=== PATIENT | female | born 1980 | race Caucasian/White ===

== ENCOUNTER 2022-06-29 22:48 | Emergency (ER) | payer OTHER ==
[2022-06-29] MEDS ORDERED: HYDROMORPHONE HCL 0.5 MG/0.5 ML INJ ONE (23:53)
[2022-06-29] MEDS ORDERED: ONDANSETRON 4 MG/2 ML VIAL ONE (23:53)
[2022-06-30 00:13] LABS: Urine Blood Negative (Negative); Urine Glucose Negative (Negative); Urine Protein 1+ (Negative); Urine Specific Gravity >=1.030 (1.005-1.030); Urine pH 5.5 (5.0-7.0)
[2022-06-30 00:29] LABS: Absolute Lymphocytes (CBC) 1.5 K/uL (0.7-4.9); Hematocrit 36.9 % (36.0-45.0); Lymphocytes % 15.9 % (15.3-44.8); MPV 8.1 fL (7.6-11.3); RBC Red Blood Cell Count 4.01 M/uL (3.86-4.86)
[2022-06-30 00:33] LABS: Calcium Oxalate Crystals- Ur Many /HPF (None Seen); Urine Bacteria None Seen /HPF (<20); Urine Mucus Slight /HPF (None Seen); Urine RBC None Seen /HPF (None Seen)
[2022-06-30 00:45] LABS: Albumin 4.1 g/dL (3.4-5.0); Bilirubin Total 0.2 mg/dL (0.2-1.0); Potassium 3.9 mmol/L (3.5-5.1); Protein, Total 7.6 g/dL (6.4-8.2)
[2022-06-30 02:47] LABS: Urine Specific Gravity/Preg >1.030 (1.005-1.030)
[2022-06-30 03:46] VITALS: TEMP 98.1
[2022-06-30 03:49] VITALS: O2SAT 97
[2022-06-30 03:50] VITALS: BP 101/63
--- NOTE | 2022-06-30 11:28 | RAD REPORT ---
EXAM DESCRIPTION: CT Abdomen and Pelvis With Intravenous Contrast CLINICAL HISTORY: ABD PAIN TECHNIQUE: Axial computed tomography images of the abdomen and pelvis with intravenous contrast. S agittal and coronal reformatted images were created and reviewed. This CT exam was performed using one or more of the following dose reduction techniques: automated exposure control, adjustment of t he mA and/or kV according to patient size, and/or use of iterative reconstruction technique. COMPARISON: No relevant prior studies available. FINDINGS: Lung bases: Unremarkable. No mass. No consolidation. ABDOMEN: Liver: Unremarkable. No mass. Gallbladder and bile ducts: Unremarkable. No calcified stones. No ductal dilation. Pancreas: Unremarkable. No mass. No ductal dilation. Spleen: Unremarkable. No splenomegaly. Adrenals: Unremarkable. No mass. Kidneys and ureters: Unremarkable. No solid mass. No hydronephrosis. Stomach and bowel: Prior gastric bypass. Copious stool. No bowel obstruction. No appreciable mucosal thickening. PELVIS: Appendix: Normal caliber appendix. No findings to suggest acute appendicitis. Bladder: Unremarkable. No mass. Reproductive: 2.1 cm left ovarian corpus luteal cyst. No follow-up imaging is necessary. The ut erus and right ovary are unremarkable as visualized. ABDOMEN and PELVIS: Intraperitoneal space: Unremarkable. No free air. No significant fluid collection. Bones/joints: Mild to moderate multilevel spondylosis. No acute fracture. No dislocation. Soft tissues: Unremarkable. Vasculature: Unremarkable. No abdominal aortic aneurysm. Lymph nodes: Unremarkable. No enlarged lymph nodes. IMPRESSION: 1. Copious stool. No bowel obstruction. 2. Other findings as above. 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 The interpreting radiologist is fully responsible for the content of the report.
--- NOTE | 2022-07-16 14:13 | EDPHYS ---
Physician Documentation [facility] Name: Federica Mixon Age: 42 yrs Sex: Female : 1980 Arrival Date: 06/29/2022 Time: 22:50 Bed 18 Private MD: ED Physician Kaveh Dieog HPI: 06/29 23:29 This 42 yrs old Female presents to ER via EMS with complaints of Abdominal Pain. 3 23:29 42-year-old female with history of obesity and gastric bypass in 2020 now presents to [facility] the ED with lower abdominal pain bilaterally since approximately 6 PM today. Denies any fever, headache, neck pain, chest pain, shortness of breath, back pain, vomiting, diarrhea, rash, bleeding, PRODUCTION QUALITY MANAGER symptoms, urinary symptoms, or any other symptoms at this time. Pain is described as waxing and waning in nature. She also denies any injury, travel, or known sick contacts.. 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 - Social history:: Smoking status: Patient denies any tobacco usage or history of. ROS: 23:30 Constitutional: Negative for fever, chills, and weight loss, Eyes: Negative for injury, sp3 pain, redness, and discharge, ENT: Negative for injury, pain, and discharge, Neck: Negative for injury, pain, and swelling, Cardiovascular: Negative for chest pain, palpitations, and edema, Respiratory: Negative for shortness of breath, cough, wheezing, and pleuritic chest pain, Back: Negative for injury and pain, : Negative for injury, bleeding, discharge, and swelling, MS/Extremity: Negative for injury and deformity, Skin: Negative for injury, rash, and discoloration, Neuro: Negative for headache, weakness, numbness, tingling, and seizure, Psych: Negative for depression, anxiety, suicide ideation, homicidal ideation, and hallucinations, Allergy/Immunology: Negative for hives, rash, and allergies, Endocrine: Negative for neck swelling, polydipsia, polyuria, polyphagia, and marked weight changes. 23:30 All other systems are negative. Exam: 23:30 Constitutional: This is a well developed, well nourished patient who is awake, alert, sp3 and in no acute distress. Head/Face: Normocephalic, atraumatic. Eyes: Pupils equal round and reactive to light, extra-ocular motions intact. Lids and lashes normal. Conjunctiva and sclera are non-icteric and not injected. Cornea within normal limits. Periorbital areas with no swelling, redness, or edema. ENT: Nares patent. No nasal discharge, no septal abnormalities noted. External auditory canals are clear. Oropharynx with no redness, swelling, or masses, exudates, or evidence of obstruction, uvula midline. Mucous membranes moist. Neck: Trachea midline, no thyromegaly or masses palpated, and no cervical lymphadenopathy. Supple, full range of motion without nuchal rigidity, or vertebral point tenderness. No Meningismus. Chest/axilla: Normal chest wall appearance and motion. Nontender with no deformity. No lesions are appreciated. Cardiovascular: Regular rate and rhythm with a normal S1 and S2. No gallops, murmurs, or rubs. Normal PMI, no JVD. No pulse deficits. Respiratory: Lungs have equal breath sounds bilaterally, clear to auscultation and percussion. No rales, rhonchi or wheezes noted. No increased work of breathing, no retractions or nasal flaring. Back: No spinal tenderness. No costovertebral tenderness. Full range of motion. Skin: Warm, dry with normal turgor. Normal color with no rashes, no lesions, and no evidence of cellulitis. MS/ Extremity: Pulses equal, no cyanosis. Neurovascular intact. Full, normal range of motion. Neuro: Awake and alert, GCS 15, oriented to person, place, time, and situation. Cranial nerves II-XII grossly intact. Motor strength 5/5 in all extremities. Sensory grossly intact. Cerebellar exam normal. Normal gait. Psych: Awake, alert, with orientation to person, place and time. Behavior, mood, and affect are within normal limits. 23:30 Abdomen/GI: Mild lower abdominal pain to palpation without peritoneal signs, rebound or guarding.. Vital Signs: 22:55 BP 136 / 78; Pulse 68; Resp 18; Temp 98.1(O); Pulse Ox 100% on R/A; Weight 70.31 kg ll3 (R); Height 5 ft. 1 in. (R); Pain 10/10; 23:00 BP 116 / 84; Pulse 61; Resp 17 S; Pulse Ox 98% ; ha1 23:55 BP 114 / 73; Pulse 65; Resp 15 S; Pulse Ox 97% on R/A; ha1 03 00:55 BP 101 / 63; Pulse 80; Resp 15 S; Pulse Ox 97% on R/A; ha1 06/29 22:55 Body Mass Index 29.29 (70.31 kg, 154.94 cm) ll3 03 22:55 Pain Scale: Adult ll3 MDM: 06/29 23:06 Patient medically screened. sp3 23:30 Data reviewed: vital signs, nurses notes, lab test result(s), radiologic studies. ED sp3 course: 42-year-old female with lower abdominal pain. Given history of gastric bypass, differential diagnosis will include bowel obstruction, bowel pathology including anastomotic leak/issue, bowel obstruction, ileus, functional abdominal pain, adhesions, among others. Clinically I am not highly suspicious for PRODUCTION QUALITY MANAGER, urinary, vascular pathology for patient's symptoms. Will obtain laboratory values, CT scan, and gently observe patient for any clinical signs that may change patient course. We will discharge patient home if work-up is negative and she feels better.. 06/30 01:35 ED course: . ED course: Labs normal and CT scan demonstrates constipation without sp3 obstruction or other abnormality. We will discharge patient home at this time.. 06/29 22:52 Order name: CBC with Diff; Complete Time: 01:14 sp3 06/29 22:52 Order name: CMP; Complete Time: 01:14 sp3 06/29 22:52 Order name: Lipase; Complete Time: 01:14 sp3 06/29 22:52 Order name: Urine Microscopic Only; Complete Time: 01:14 sp3 06/30 00:14 Order name: Urine Dipstick-Ancillary; Complete Time: 01:14 EDMS 06/30 00:40 Order name: Urine --Ancillary (enter results) rv1 06/29 22:52 Order name: CT Abd/Pelvis - IV Contrast Only sp3 06/29 22:52 Order name: IV Saline Lock; Complete Time: 00:13 sp3 06/29 22:52 Order name: Labs collected and sent; Complete Time: 00:13 sp3 06/29 22:52 Order name: Urine Dipstick-Ancillary (obtain specimen); Complete Time: 00:13 sp3 06/29 22:52 Order name: Urine Test (obtain specimen); Complete Time: 00:13 sp3 Administered Medications: 06/29 23:58 Drug: Ondansetron IVP 4 mg Route: IVP; Site: right antecubital; ha1 06/30 00:21 Follow up: Response: No adverse reaction ha1 00:01 Drug: HYDROmorphone IVP 1 mg Route: IVP; Site: right antecubital; ha1 00:21 Follow up: Response: No adverse reaction; Pain is decreased; RASS: Alert and Calm (0) ha1 Disposition Summary: 06/30/22 01:36 Discharge Ordered Location: Home sp3 Condition: Stable sp3 Diagnosis - Constipation, unspecified sp3 - Abdominal pain, Generalized sp3 Followup: sp3 - With: Private Physician - When: Upon discharge from the Emergency Department - Reason: Continuance of care Discharge Instructions: - Discharge Summary Sheet sp3 - Constipation, Adult sp3 Forms: - Medication Reconciliation Form sp3 - Thank You Letter sp3 - Antibiotic Education sp3 - Prescription Opioid Use sp3 Signatures: Dispatcher [employer] Kaveh Monsivais MD MD sp3 Hermila Hurtado RN RN 3 Estrellita Pinedo RN RN 1
--- NOTE | 2022-07-16 14:13 | ER ---
Nurse's Notes [facility] Name: Federica Mixon Age: 42 yrs Sex: Female : 1980 Arrival Date: 06/29/2022 Time: 22:50 Bed 18 Private MD: Diagnosis: Constipation, unspecified;Abdominal pain, Generalized Presentation: 06/29 22:55 Chief complaint: Patient states: C/o right and left lower abdominal pain, and nausea, ll3 states last BM was yesterday. Coronavirus screen: Vaccine status: Patient reports being unvaccinated. muscle pain, nausea. Ebola Screen: No symptoms or risks identified at this time. Initial Sepsis Screen: Does the patient meet any 2 criteria? No. Patient's initial sepsis screen is negative. Does the patient have a suspected source of infection? No. Patient's initial sepsis screen is negative. Risk Assessment: Do you want to hurt yourself or someone else? Patient reports no desire to harm self or others. Onset of symptoms was June 29, 2022 at 22:00. 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 - Social history:: Smoking status: Patient denies any tobacco usage or history of. Screenin:00 Abuse screen: Denies threats or abuse. Denies injuries from another. Nutritional ha1 screening: No deficits noted. Tuberculosis screening: No symptoms or risk factors identified. 23:00 [facility] ED Fall Risk Assessment (Adult) History of falling in the last 3 months, ha1 including since admission No falls in past 3 months (0 pts) Confusion or Disorientation No (0 pts) Intoxicated or Sedated No (0 pts) Impaired Gait No (0 pts) Mobility Assist Device Used No (0 pt) Altered Elimination No (0 pt) Score/Fall Risk Level 0 - 2 = Low Risk Oriented to surroundings, Maintained a safe environment, Educated pt \T\ family on fall prevention, incl call for assistance when getting out of bed, Assessed \T\ reinforced patient's understanding of fall precautions. Assessment: 23:00 General: Appears uncomfortable, Behavior is calm, cooperative. Pain: Complains of pain ha1 in abdomen Pain does not radiate. Pain at worst was 10 out of 10 on a pain scale. Quality of pain is described as crampy, throbbing, Pain began suddenly. Neuro: Level of Consciousness is awake, alert, obeys commands, Oriented to person, place, time, situation. Cardiovascular: Capillary refill < 3 seconds Patient's skin is warm and dry. Respiratory: Airway is patent Respiratory effort is even, unlabored, Respiratory pattern is regular, symmetrical. GI: Abdomen is round non-distended, Bowel sounds present X 4 quads. Abd is soft and non tender X 4 quads. Reports lower abdominal pain, gaseousness, nausea. : No signs and/or symptoms were reported regarding the genitourinary system. EENT: No signs and/or symptoms were reported regarding the EENT system. Derm: Skin is pink, warm \T\ dry. Musculoskeletal: Circulation, motion, and sensation intact. Range of motion: intact in all extremities. 06/30 00:20 Reassessment: Patient and/or family updated on plan of care and expected duration. Pain ha1 level reassessed. Patient is alert, oriented x 3, equal unlabored respirations, skin warm/dry/pink. Patient denies pain at this time. Patient states feeling better. Patient states symptoms have improved. 01:20 Reassessment: Patient and/or family updated on plan of care and expected duration. Pain ha1 level reassessed. Patient is alert, oriented x 3, equal unlabored respirations, skin warm/dry/pink. Patient denies pain at this time. Patient states feeling better. Patient states symptoms have improved. Vital Signs: 06/29 22:55 BP 136 / 78; Pulse 68; Resp 18; Temp 98.1(O); Pulse Ox 100% on R/A; Weight 70.31 kg ll3 (R); Height 5 ft. 1 in. (R); Pain 10/10; 23:00 BP 116 / 84; Pulse 61; Resp 17 S; Pulse Ox 98% ; ha1 23:55 BP 114 / 73; Pulse 65; Resp 15 S; Pulse Ox 97% on R/A; ha1 06/30 00:55 BP 101 / 63; Pulse 80; Resp 15 S; Pulse Ox 97% on R/A; ha1 06/29 22:55 Body Mass Index 29.29 (70.31 kg, 154.94 cm) ll3 06/29 22:55 Pain Scale: Adult 3 ED Course: 06/29 22:50 Patient arrived in ED. ja2 22:51 Kaveh Diego MD is Attending Physician. sp3 22:58 Triage completed. ll3 22:58 Arm band placed on Patient placed in waiting room, Patient notified of wait time. ll3 23:00 Patient has correct armband on for positive identification. Bed in low position. Call ha1 light in reach. Side rails up X 1. Adult w/ patient. 23:39 Estrellita Pinedo, MADELEINE is Primary Nurse. ha1 23:55 Inserted saline lock: 14 gauge 20 gauge in right antecubital area, using aseptic ha1 technique. Blood collected. 06/30 00:13 CBC with Diff Sent. ha1 00:13 CMP Sent. ha1 00:14 Lipase Sent. ha1 00:14 Urine Microscopic Only Sent. ha1 00:54 Urine --Ancillary (enter results) Sent. rv1 01:15 CT Abd/Pelvis - IV Contrast Only In Process Unspecified. EDMS 01:57 No provider procedures requiring assistance completed. IV discontinued, intact, ha1 bleeding controlled, No redness/swelling at site. Pressure dressing applied. Administered Medications: 06/29 23:58 Drug: Ondansetron IVP 4 mg Route: IVP; Site: right antecubital; ha1 06/30 00:21 Follow up: Response: No adverse reaction ha1 00:01 Drug: HYDROmorphone IVP 1 mg Route: IVP; Site: right antecubital; ha1 00:21 Follow up: Response: No adverse reaction; Pain is decreased; RASS: Alert and Calm (0) ha1 Medication: 01:58 VIS not applicable for this client. ha1 Outcome: 01:36 Discharge ordered by . sp3 01:58 Discharged to home ambulatory, with family. ha1 01:58 Condition: stable 01:58 Discharge instructions given to patient, family, Instructed on discharge instructions, follow up and referral plans. Demonstrated understanding of instructions, follow-up care. 01:59 Patient left the ED. ha1 Signatures: Dispatcher [employer] Kaveh Monsivais MD MD sp3 Bindu Maldonado Lynsea RN RN 3 Estrellita Pinedo RN RN ha1 Melvi Lacy rv1 Corrections: (The following items were deleted from the chart) 00:14 00:14 Ondansetron IVP 4 mg IVP in right antecubital ha1 ha1
== END 2022-06-30 01:59 | disposition home or self-care (01) ==
LOC: ER 22:48
DX: K59.00 Constipation, unspecified (principal)
CPT/HCPCS: 85025; 36415; 81025; 83690; 80053; 74177; 96375; 96374; 99284; Q9967; J1170; J2405; 81003; 81015

== ENCOUNTER 2023-11-25 22:05 | Emergency (ER) | payer OTHER ==
--- OUTSIDE RECORDS SUMMARY | 2023-11-25 22:08 | XMS REPORT | Continuity of Care Document ---
Author Name Unknown Address [address] [facility] [address] [place] [address] [facility] thconnect Address [address] [facility]. [address] [place] [address] Care Team Providers Care Mattress [place] Encaser Name Role Phone Behzad Curry Primary Care Physician [phone] FELY MCDUFFIE Attending Clinician Unavailable KENNY CASTILLO Attending Clinician Unavailab le LAB90 Attending Clinician Unavailable GC_GCBZW_Kadiyala_S Attending Clinician Unavaila KAREN Bledsoe Attending Clinician Unavailable MOISÉS GRANT Attending Clinician Unavaila ble GC_GCBZW_Kadiyala_S Admitting Clinician Unavaila ble Payers Payer Name Policy Type Policy Number Effective Date Expirati on Date Source CIGNA-ALLEGIANCE/P PO 2 [id number] 2022 00:00:00 [employer] - ALLEGIANCE BENEFIT PLAN MANAGEMENT (PPO) [id number] Problems Condition Name Condition Details Condition Category Status Onset Date Resolution Date Last Treatment Date Treating Clinician Comments Source Anemia Anemia Problem Active 08-17 00:00: 00 [facility] Depressive disorder Depressive Disorder Problem Active 07-31 00:00: 00 [facility] Insomnia Insomnia Problem Active 07-31 00:00: 00 [facility] Dyspareuni a Dyspareuni a Problem Active 07-31 00:00: 00 [facility] Menopausal syndrome Menopausal Syndrome Problem Active 4-08 00:00: 00 [facility] Joint pain Joint Pain Problem Active 4-08 00:00: 00 [facility] Fatigue Fatigue Problem Active 408 00:00: 00 [facility] Reduced libido Reduced Libido Problem Active 4-08 00:00: 00 [facility] Vitamin D deficiency Vitamin D Deficiency Problem Active 408 00:00: 00 [facility] Anxiety disorder Anxiety Disorder Problem Active 408 00:00: 00 [facility] Genital herpes simplex Genital Herpes Simplex Problem Active 24 00:00: 00 [facility] Abdominal cramping Abdominal cramping Disease Active 12-30 00:00: 00 Cara Welch - Externa l Panic attacks Panic attacks Disease Active 12-30 00:00: 00 Cara Championa l Vitamin D deficiency Vitamin D deficiency Disease Active 09-15 00:00: 00 Cara Championa l History of gastric bypass History of gastric bypass Disease Active 09-15 00:00: 00 Cara Welch - Externa l Fibrocysti c disease of breast Fibrocysti c Disease of Breast Problem Active 07-28 00:00: 00 [facility] Social History Social Habit Start Date Stop Date Quantity Comments Source History of tobacco use 1994-06-08 00:00:00 Passive smoker Cara Welch - External Gender identity Neda Welch - External Sexual orientation Kevan Welch - External Tobacco use and exposure 2023-09-16 00:00:00 2023-09-16 00:00:00 Smokeless tobacco non-user Cara Welch - External Cigarettes smoked current (pack per day) - Reported 2023-09-16 00:00:00 2023-09-16 00:00:00 Cara Welch - External Cigarette pack-years 2023-09-16 00:00:00 2023-09-16 00:00:00 Cara Welch - External Alcoholic beverage intake 2023-09-16 00:00:00 2023-09-16 00:00:00 Ex-drinker (finding) Cara Welch - External History of Social function 2023-01-10 00:00:00 2023-01-10 00:00:00 Cara Welch - External Alcohol intake 2022-12-30 00:00:00 2022-12-30 00:00:00 Ex-drinker (finding) Cara Welch - External Tobacco Comment 2022-09-14 00:00:00 2022-09-14 00:00:00 Stopped 2010 Cara Welch - External Sex assigned at 1980 00:00:00 1980 00:00:00 Cara Welch - External Smoking Status Start Date Stop Date Source Never Smoker [facility] Ex-smoker 2023-09-16 00:00:00 2023-09-16 00:00:00 Kevan sanches Rebekah - External Medications Ordered Medication Name Filled Medication Name Start Date Stop Date Current Medication? Ordering Clinician Indication Dosage Frequency Signature (SIG) Comments Components Source Ferrous Sulfate 325 (65 Fe) MG oral Tablet 09-15 08:41: 26 Yes [id number] 325mg Take 1 tablet (325 mg total) by mouth daily (with breakfast) . Cara morales Cholecalcif sonia (Vitamin D) 125 MCG (5000 UT) oral Capsule 09-15 08:41: 08 Yes 1{capsu le} Take 1 capsule by mouth daily. Cara morales Gabapentin 100 MG oral Capsule 09-15 00:00: 00 Yes [id number] 9101 100mg QD Take 1 capsule (100 mg total) by mouth nightly as needed. Cara morales Tirzepatide -Weight Management 2.5 MG/0.5ML subcutaneou s Solution Auto-inject or 09-15 00:00: 00 Yes [id number] 2.5mg Inject 0.5 mL (2.5 mg total) into the skin once a week. Cara morales Valacyclovi r HCl 500 MG oral Tablet 09-14 00:00: 00 Yes Cara morales [employer] Thyroid 60 MG oral Tablet 08-21 00:00: 00 Yes [id number] Take 1 tablet every day by oral route in the morning for 90 days. Cara Rebekah morales Escitalopra m Oxalate 20 MG oral Tablet 05-17 00:00: 00 Yes [id number] 20mg Take 1 tablet (20 mg total) by mouth daily. Cara morales Propranolol HCl 20 MG oral Tablet 2022-04 00:00: 00 Yes [id number] 20mg Q.5D Take 1 tablet (20 mg total) by mouth 2 times daily as needed. Cara morales Hyoscyamine Sulfate SL 0.125 MG sublingual SL Tab 2022-04 00:00: 00 Yes [id number] .125{tb l} Place 0.125 tablets under the tongue every 6 (six) hours. Cara morales Cyclobenzap rine HCl 5 MG oral Tablet 2022-04 00:00: 00 Yes [id number] 5mg Q.5D Take 1 tablet (5 mg total) by mouth 2 times daily as needed for muscle spasms. Cara morales Pantoprazol e Sodium 40 MG oral Tablet Delayed Response 2022-04 00:00: 00 Yes [id number] 40mg Take 1 tablet (40 mg total) by mouth daily. Cara morales Escitalopra m Oxalate 5 MG oral Tablet 12-30 14:55: 54 Yes 5mg Take 1 tablet (5 mg total) by mouth daily. Cara morales Escitalopra m Oxalate 10 MG oral Tablet 12-30 14:55: 45 12-30 00:00 :00 No 10mg Take 1 tablet (10 mg total) by mouth daily. Cara morales Hyoscyamine Sulfate SL 0.125 MG sublingual SL Tab 12-30 00:00: 00 Yes [id number] .125{tb l} Place 0.125 tablets under the tongue every 6 (six) hours. Cara morales Cyclobenzap rine HCl 5 MG oral Tablet 12-30 00:00: 00 Yes [id number] 5mg Q.[id number] 3D Take 1 tablet (5 mg total) by mouth 3 times daily as needed for muscle spasms. Cara morales Cyclobenzap rine HCl 5 MG oral Tablet 11-12 00:00: 00 12-30 00:00 :00 No [id number] 5mg Q.[id number] 3D Take 1 tablet (5 mg total) by mouth 3 times daily as needed for muscle spasms Cara morales Pantoprazol e Sodium 40 MG oral Tablet Delayed Response 10-29 00:00: 00 Yes [id number] 40mg Take 1 tablet (40 mg total) by mouth daily Cara morales Vitamin D, Ergocalcife rol, 1.25 MG (77507 UT) oral Capsule 09-22 00:00: 00 12-30 00:00 :00 No [id number] 69215X Take 1 capsule (50,000 units total) by mouth once a week Cara morales PANTOPRAZOL E SODIUM OR 09-15 09:59: 00 09-15 00:00 :00 No 40mg Take 40 mg by mouth daily Cara morales Pantoprazol e Sodium 40 MG oral Tablet Delayed Response 09-15 00:00: 00 Yes [id number] 40mg Take 1 tablet (40 mg total) by mouth daily Cara morales Cyclobenzap rine HCl 5 MG oral Tablet 09-15 00:00: 00 Yes [id number] 5mg Q.[id number] 3D Take 1 tablet (5 mg total) by mouth 3 times daily as needed for muscle spasms Cara morales Naproxen Sodium 550 MG oral Tablet 08-12 00:00: 00 Yes Cara morales Cyclobenzap rine HCl 5 MG oral Tablet 08-12 00:00: 00 09-15 00:00 :00 No Cara morales TAKE 6 ML BY MOUTH 2 TIMES A DAY ORALLY 5 DAYS 2021-04- 00:00: 00 No 1 TABLET UNDER THE TONGUE AND ALLOW TO DISSOLVE NEEDED EVERY 4 HOURS NEEDED SUBLINGUAL 2 DAYS 09-28 00:00: [address] 1 PATCH ONTO THE SKIN EVERY 12 HOURS. REMOVE &amp 09-28 00:00: 00 No 1 TABLET AT BEDTIME NEEDED ORALLY 4 DAY(S) 09-28 00:00: 00 No Gabapentin 250 MG/5ML oral Solution 09-28 00:00: 00 12-30 00:00 :00 No 250mg 5 mL (250 mg total). Cara morales Hyoscyamine Sulfate SL 0.125 MG sublingual SL Tab 09-28 00:00: 00 12-30 00:00 :00 No .125{tb l} Place 0.125 tablets under the tongue. Cara morales Lidocaine (Lidoderm) 5 % apply externally Patch 09-28 00:00: 00 12-30 00:00 :00 No 5{patch } 5 patches. Cara morales boric acid boric acid No boric acid [facility] cyclobenzap rine cyclobenzap rine No cyclobenza aubrie [facility] Mucinex Mucinex No Mucinex P [facility] pantoprazol e pantoprazol e No pantoprazo le [facility] iron iron No iron [facility] multivitami n multivitami n No multivitam in [facility] Vital Signs Vital Name Observation Time Observation Value Comments S ource Respiratory rate 2023-09-16 13:22:00 15 /min Cara Welch - External Body height 2023-09-16 13:22:00 154.9 cm Neda Welch - External Body weight 2023-09-16 13:22:00 74.39 kg Neda Welch - External BMI 2023-09-16 13:22:00 30.99 kg/m2 Neda Welch - External Systolic blood pressure 2023-09-16 13:22:00 100 mm[Hg] Cara butts - External Diastolic blood pressure 2023-09-16 13:22:00 60 mm[Hg] Cara Guerrero ld - External Heart rate 2023-09-16 13:22:00 69 /min Kelse y Seybold - External Body temperature 2023-09-16 13:22:00 36.67 Serenity Cara Seybold - External Height 2023-08-01 00:00:00 61 [in_i] [facility] BP Systolic 2023-08-01 00:00:00 119 mm[Hg] [facility] BMI (Body Mass Index) 2023-08-01 00:00:00 30.4 kg/m2 [facility] BP Diastolic 2023-08-01 00:00:00 77 mm[Hg] [facility] Body Weight 2023-08-01 00:00:00 160.8 [lb_av] [facility] Systolic blood pressure 2022-12-30 19:23:00 104 mm[Hg] Cara Seybo ld - External Diastolic blood pressure 2022-12-30 19:23:00 60 mm[Hg] Cara Seybo ld - External Heart rate 2022-12-30 19:23:00 85 /min Kelse y Seybold - External Body temperature 2022-12-30 19:23:00 36.72 Serenity Cara Seybold - External Respiratory rate 2022-12-30 19:23:00 14 /min Cara Seybold - External Body height 2022-12-30 19:23:00 154.9 cm Neda ey Seybold - External Body weight 2022-12-30 19:23:00 73.483 kg Neda ey Seybold - External BMI 2022-12-30 19:23:00 30.61 kg/m2 Neda ey Seybold - External Systolic blood pressure 2022-09-15 14:50:00 111 mm[Hg] Cara Seybo ld - External Diastolic blood pressure 2022-09-15 14:50:00 64 mm[Hg] Cara Seybo ld - External Heart rate 2022-09-15 14:50:00 66 /min Kelse y Seybold - External Body temperature 2022-09-15 14:50:00 36.39 Serenity Cara Seybold - External Respiratory rate 2022-09-15 14:50:00 16 /min Cara Seybold - External Body height 2022-09-15 14:50:00 154.9 cm Neda ey Seybold - External Body weight 2022-09-15 14:50:00 76.839 kg Neda eddy Seybold - External BMI 2022-09-15 14:50:00 32.01 kg/m2 Neda Welch - External Oxygen saturation in Arterial blood by Pulse oximetry 2022-09-15 14:50:00 98 /min Cara Guerrero ld - External BP Systolic 2022-03-13 10:30:00 116 mm[Hg] BP Diastolic 2022-03-13 10:30:00 74 mm[Hg] Weight Measured 2022-03-13 10:30:00 158.40 pounds Height Measured 2022-03-13 10:30:00 61.00 inches Body Temperature 2022-03-13 10:30:00 98.40 degrees Heart Rate 2022-03-13 10:30:00 63.00 /min Respiratory Rate 2022-03-13 10:30:00 16.00 /min BP Systolic 2021-09-28 16:53:00 109 mm[Hg] BP Diastolic 2021-09-28 16:53:00 71 mm[Hg] Weight Measured 2021-09-28 16:53:00 156.40 pounds Height Measured 2021-09-28 16:53:00 61.00 inches Body Temperature 2021-09-28 16:53:00 98.40 degrees Heart Rate 2021-09-28 16:53:00 69.00 /min Respiratory Rate 2021-09-28 16:53:00 Procedures Procedure Date / Time Performed Performing Clinicia n Source Transvaginal Us Non-ob 2023-08-05 00:00:00 [facility] US, transvaginal 2023-08-05 00:00:00 [facility] Medical MAMMO, screening, digital, bilateral 2023-08-01 00:00:00 [facility] Gastric Bypass for Obesity 2020-08-23 00:00:00 [facility] Delivery [facility] Med ical Plan of Care Planned Activity Planned Date Details Comments Source Diagnostic Test Pending 2023-08-18 00:00:00 T3, free, serum or plasma [code = T3, free, serum or plasma] [facility] Medical Diagnostic Test Pending 2023-08-18 00:00:00 E Ag [Presence] on Red Blood Cells [code = 1021-5] [facility] Diagnostic Test Pending 2023-08-18 00:00:00 Deprecated little i NOS Ag [Presence] on Red Blood Cells [code = 1189-0] [facility] Diagnostic Test Pending 2023-08-18 00:00:00 Grapefruit IgE Ab [Units/volume] in Serum [code = 6131-7] [facility] Goal Plan of Care Not e [code = 28773-0] Goal Plan of Care Not e [code = 93630-5] Goal Plan of Care Not e [code = 29980-7] Goal Plan of Care Not e [code = 18210-8] Goal Plan of Care Not e [code = 67298-2] Goal Plan of Care Not e [code = 42678-5] Goal Plan of Care Not e [code = 72099-9] Goal Plan of Care Not e [code = 14271-0] Goal Plan of Care Not e [code = 12451-6] Goal Plan of Care Not e [code = 67037-4] Encounters Start Date/Time End Date/Time Encounter Type Admission Type Attending [facility] Facility Care Department Encounter ID Source 2023-12-23 14:00:00 2023-12-23 14:00:00 Outpatient FELY MCDUFFIE [id number] [facility] 2023-11-24 00:00:00 2023-11-24 00:00:00 Outpatient KENNY CASTILLO [id number] [facility] 2023-11-23 00:00:00 2023-11-23 00:00:00 Outpatient KENNY CASTILLO [id number] [facility] 2023-11-21 00:00:00 2023-11-21 00:00:00 Outpatient FELY MCDUFFIE [id number] [facility] 2023-10-20 16:30:00 2023-10-20 16:30:00 Outpatient FELY MCDUFFIE [id number] [facility] 2023-09-16 09:20:00 2023-09-16 09:20:00 Outpatient ZACH CARA STEPHENS [id number] Carasilvino Welch 2023-09-16 08:30:00 2023-09-16 08:30:00 Outpatient FELY MCDUFFIE [id number] Cara Welch 2023-08-18 00:00:00 2023-08-18 00:00:00 [place] MuhammadP: [address], [place] [id number] , Ph. [facility] - GC_GCBZW_cSarlet gilmer Gallina* [id number] [facility] 2023-08-05 00:00:00 2023-08-05 00:00:00 Brigette Weston MD: [address], [place] [address] , Ph. GC_GCBZW_Ka diyala_S [facility] - GC_GCBZW_Scarlet scherer Sami* [id number] [facility] 2023-08-01 00:00:00 2023-08-01 00:00:00 [place] MuhammadP: [address], [place] [address] , Ph. GC_GCBZW_Ka diyala_S [facility] - GC_GCBZW_Scarlet gilmer Sami* [id number] [facility] 2023-07-29 00:00:00 2023-07-29 00:00:00 Outpatient GC_GCBZW_Ka diyala_S [facility] [id number] [facility] 2023-07-28 00:00:00 2023-07-28 00:00:00 Outpatient GC_GCBZW_Ka diyala_S [facility] PRIV [id number] [facility] 2023-07-19 14:52:17 2023-07-19 14:52:17 Outpatient [facility] [id number] Lucian Jones 2023-05-17 00:00:00 2023-05-17 00:00:00 Outpatient KAREN ANNASEY [id number] [facility] 2023-05-17 00:00:00 2023-05-17 00:00:00 Outpatient KENNY CASTILLOSILVINO TSEPHENS [id number] [facility] 2023-04-12 00:00:00 2023-04-12 00:00:00 Outpatient KAREN ANNA CARA STEPHENS [id number] [facility] 2023-04-01 00:00:00 2023-04-01 00:00:00 Outpatient KENNY CASTILLO CARA STEPHENS [id number] [facility] 2023-03-01 00:00:00 2023-03-01 00:00:00 Outpatient KENNY CASTILLO CARA STEPHENS [id number] [facility] 2023-02-25 00:00:00 2023-02-25 00:00:00 Outpatient KAREN ANNA CARA STEPHENS [id number] [facility] 2023-02-25 00:00:00 2023-02-25 00:00:00 Outpatient KENNY CASTILLO CARA STEPHENS [id number] [facility] 2023-02-22 00:00:00 2023-02-22 00:00:00 Outpatient KENNY CASTILLO CARA STEPHENS [id number] [facility] 2023-02-22 00:00:00 2023-02-22 00:00:00 Outpatient GC_GCBZW_Ka diyala_S [facility] [id number] [facility] 2023-02-04 00:00:00 2023-02-04 00:00:00 Outpatient KENNY CASTILLO CAR[facility] STEPHENS [id number] [facility] 2023-01-31 00:00:00 2023-01-31 00:00:00 Outpatient KENNY CASTILLO CAR[facility] STEPHENS [id number] [facility] 2023-01-04 00:00:00 2023-01-04 00:00:00 Outpatient MOISÉS GRANT [id number] [facility] 2022-12-30 14:30:00 2022-12-30 14:30:00 Outpatient KENNY CASTILLO CARA STEPHENS [id number] [facility] 2022-12-21 16:30:00 2022-12-21 16:30:00 Outpatient KENNY CASTILLO CARA [id number] [facility] 2022-12-13 15:30:00 2022-12-13 15:30:00 Outpatient HUNDL, FELY CARA STEPHENS [id number] [facility] 2022-11-24 00:00:00 2022-11-24 00:00:00 Outpatient HUNDL, FELY CARA STEPHENS [id number] [facility] 2022-11-17 14:00:00 2022-11-17 14:00:00 Outpatient HUNDL, FELY CARA STEPHENS [id number] [facility] 2022-11-10 00:00:00 2022-11-10 00:00:00 Outpatient HUNDL, FELY STEPHENS [id number] [facility] 2022-10-29 00:00:00 2022-10-29 00:00:00 Outpatient HUNDL, FELY STEPHENS [id number] [facility] 2022-10-11 00:00:00 2022-10-11 00:00:00 Outpatient HUNDL, FELY CARA STEPHENS [id number] [facility] 2022-09-22 00:00:00 2022-09-22 00:00:00 Outpatient HUNDL, FELY STEPHENS [id number] [facility] 2022-09-15 10:20:00 2022-09-15 10:20:00 Outpatient LAB90 CARA STEPHENS [id number] [facility] 2022-09-15 09:30:00 2022-09-15 09:30:00 Outpatient HUNDL, FELY CARA STEPHENS [id number] [facility] 2022-08-20 16:00:00 2022-08-20 16:00:00 Outpatient HUNDL, FELY STEPHENS [id number] [facility] 2022-08-12 15:52:42 2022-08-12 15:52:42 Outpatient [facility] [id number] Lucian Jones 2022-04-22 13:49:14 2022-04-22 13:49:14 Outpatient [facility] Lucian Jones 2022-03-13 10:21:36 2022-03-13 10:21:36 Outpatient [facility] Lucian Jones 2022-03-13 00:00:00 2022-03-13 00:00:00 Outpatient Visit [id number] Results Test Description Test Time Test Comments Results Result Co mments Source [facility] panel - Blood by Automated [id number] 00:00:00* Test Item Value Reference Range Interpretation Comme nts WBC (test code = WBC) 7.8 10 3.7-12.0 RBC (test code = RBC) 3.68 10 3.60-5.50 HGB (test code = HGB) 11.3 g/dL 11.5-15.6 L HCT (test code = HCT) 34.4 % 34.5-46.5 L MCV (test code = MCV) 93.6 um 80.0-102.0 MCH (test code = MCH) 30.8 pg 25.0-34.1 MCHC (test code = MCHC) 32.9 g/dL 29.0-35.0 RDW (test code = RDW) 13.3 % 10.9-16.9 plt (test code = plt) 415 10 136-392 H MPV (test code = MPV) 8.5 um 7.4-11.1 gran % (test code = gran %) 68.2 % 36.0-78.0 lymph % (test code = lymph %) 20.6 % 12.0-48.0 mono % (test code = mono %) 8.7 % 0.0-13.0 eos % (test code = eos %) 2 % 0-8 baso % (test code = baso %) 1 % 0-2 gran # (test code = gran #) 5.3 10 1.2-6.8 lymph # (test code = lymph #) 1.6 10 1.2-3.2 mono # (test code = mono #) 0.7 10 0.3-0.8 eos # (test code = eos #) 0.1 10 0.0-0.4 baso # (test code = baso #) 0.0 10 0.0-0.2 [facility] [Units/volume] in Serum or [id number] 00:00:00* Test Item Value Reference Range Interpretation Comme nts FSH (test code = FSH) 5.2 mIU/mL [facility] 1996 panel - Serum or [id number] 00:00:00* Test Item Value Reference Range Interpretation Comme nts cholesterol (test code = cholesterol) 148 mg/dL 0-200 triglycerides (test code = triglycerides) 53 mg/dL 10-150 HDL cholesterol (test code = HDL cholesterol) 64 mg/dL >50 HDL risk factor (test code = HDL risk factor) 2.3 calc. VLDL cholesterol (test code = VLDL cholesterol) 11 calc Cholesterol in LDL [Mass/vol ume] in Serum or Plasma (test code = 2089-1) 76 mg/dL <100 [facility]Estradiol (E2) [Mass/volume] in Serum or [id number] 00:00:00 * Test Item Value Reference Range Interpretation Comme nts estradiol (test code = estradiol) 76.9 pg/mL 6.1-91.9 [facility] [Units/volume] in Serum or [id number] 00:00:00* Test Item Value Reference Range Interpretation Comme nts TSH (test code = TSH) 3.630 uIU/mL 0.500-4.530 [facility] Butafzr08-Vndnmnjjupkhri D3+25-Hydroxyvitamin D2 [Mass/volume] in Serum or [id number] 00:00:00* Test Item Value Reference Range Interpretation Comme nts vitamin D III (test code = v itamin D III) 40.9 NG/mL 32.0-100.0 [facility]Triiodothyronine (T3) Free [Mass/volume] in Serum or Plasma 2023-08-06 00:00:00* Test Item Value Reference Range Interpretation Comme nts free T3 (test code = free T3) 1.9 pg/mL 2.0-4.7 L [facility]prehensive metabolic 2000 panel - Serum or [id number] 00:00:00* Test Item Value Reference Range Interpretation Comme nts sodium (test code = sodium) 137 mmol/L 136-145 potassium (test code = potassium) 4.5 mmol/L 3.5-5.5 chloride (test code = chloride) 102 mmol/L 98-107 CO2 (test code = CO2) 25 mmol/ L 23-31 glucose (test code = glucose) 90 mg/dL 70-99 BUN (test code = BUN) 21 mg/dL 6-20 H creatinine (test code = creatinine) 0.8 mg/dL 0.5-0.9 calcium (test code = calcium) 9.6 mg/dL 8.6-10.4 total protein (test code = total protein) 6.7 g/dL 6.0-8.3 albumin (test code = albumin) 4.0 g/dL 3.5-5.2 total bilirubin (test code = total bilirubin) 0.3 mg/dL 0.0-1.2 alkaline phosphatase (test code = alkaline phosphatase) 75 U/L 44-147 AST (SGOT) (test code = AST (SGOT)) 21 U/L 0-32 ALT (SGPT) (test code = ALT (SGPT)) 18 U/L 0-33 globulin (test code = globulin) 2.7 g/dL 1.7-3.7 A/G ratio (test code = A/G ratio) 1.5 calc. 1.1-2.9 BUN/creatinine ratio (test code = BUN/creatinine ratio) 26.3 calc 10.0-28.0 eGFR non- (test code = eGFR non-) 97.152 mL/min/1.73A? >60.000 eGFR (test code = eGFR ) 116.582 mL/min/1.73A? >60.000 [facility]agin Ab [Presence] in Serum by [id number] 00:00:00* Test Item Value Reference Range Interpretation Comme nts RPR (test code = RPR) non-reactive non-reactive [facility]HIV 1+2 Ab+HIV1 p24 Ag [Presence] in Serum or Plasma by [id number] 00:00:00* Test Item Value Reference Range Interpretation Comme nts HIV Ag/Ab (test code = HIV Ag/Ab) non-reactive non-reactive HIV-1 P24 Ag (test code = HI V-1 P24 Ag) non-reactive non-reactive HIV 1+2 Ab (test code = HIV 1+2 Ab) non-reactive non-reactive [facility]Reagin Ab [Presence] in Serum by [id number] 00:00:00* Test Item Value Reference Range Interpretation Comme nts RPR (test code = RPR) non-reactive non-reactive [facility] 1+2 Ab+HIV1 p24 Ag [Presence] in Serum or Plasma by [id number] 00:00:00* Test Item Value Reference Range Interpretation Comme nts HIV Ag/Ab (test code = HIV Ag/Ab) non-reactive non-reactive HIV-1 P24 Ag (test code = HI V-1 P24 Ag) non-reactive non-reactive HIV 1+2 Ab (test code = HIV 1+2 Ab) non-reactive non-reactive [facility]lamydia trachomatis and Neisseria gonorrhoeae rRNA panel - Specimen by BUD with probe [id number] 00:00:00* Test Item Value Reference Range Interpretation Comme nts aptima combo 2 swab (CT) (te st code = aptima combo 2 swab (CT)) CT neg negative aptima combo 2 swab (GC) (te st code = aptima combo 2 swab (GC)) GC neg negative [facility]lamydia trachomatis and Neisseria gonorrhoeae rRNA panel - Specimen by BUD with probe [id number] 00:00:00* Test Item Value Reference Range Interpretation Comme nts aptima combo 2 swab (CT) (te st code = aptima combo 2 swab (CT)) CT neg negative aptima combo 2 swab (GC) (te st code = aptima combo 2 swab (GC)) GC neg negative [facility]atitis B virus surface Ag [Presence] in [id number] 00:00:00* Test Item Value Reference Range Interpretation Comme nts ethnicity: (test code = ethnicity:) non- race: (test code = race:) white () hep. B surf. Ag (test code = hep. B surf. Ag) non-reactive non-reactive [facility]atitis C virus Ab [Presence] in [id number] 00:00:00* Test Item Value Reference Range Interpretation Comme nts ethnicity: (test code = ethnicity:) non- race: (test code = race:) white () hep. C Ab. (test code = hep. C Ab.) non-reactive non-reactive [facility] Ag [Presence] in [id number] 00:00:00* Test Item Value Reference Range Interpretation Comme nts ethnicity: (test code = ethnicity:) non- race: (test code = race:) white () hep. B surf. Ag (test code = hep. B surf. Ag) non-reactive non-reactive [facility] MedicalHepatitis C virus Ab [Presence] in [id number] 00:00:00* Test Item Value Reference Range Interpretation Comme nts ethnicity: (test code = ethnicity:) non- race: (test code = race:) white () hep. C Ab. (test code = hep. C Ab.) non-reactive non-reactive [facility]AP TEST, THINPREP, [id number] 11:03:52* Test Item Value Reference Range Interpretation Comme nts SOURCE: (test code = 8001) Endocervical SLIDES: (test code = 8011) 1 LMP: (test code = 8021) 09/25/2021 SPECIMEN ADEQUACY: (test code = 01964) (NOTE) Satisfactory for evaluation. Endocervical cells/transformation zone component not identified. INTERPRETATION: (test code = 99591) NILM/NO EPITH. ABNORMALITY;SEE BELOW -- ---- NEGATIVE FOR INTRAEPITHELIAL LESION OR MALIGNANCY (NILM) ------- CYTOTECHNOLOGIS T: (test code = 8101) JUAQUIN Amado(ASCP) LOCATION: (test code = 48852) (NOTE) Specimens proces sed and interpreted at [facility], [address] [place] [id number], , CLIA: [id number] CPT: (test code = 8140) (NOTE) 93413 UNLESS OTH ERWISE INDICATED, COMPUTER AIDED AND TRANSITIONAL NURSE SCREENING PERFORMED. The Pap test is a screening test with an inherent, but low probability of error. Your patient should be reminded to consult you immediately if she experiences any suspicious signs or symptoms, regardless of her Pap test result. An alternate report format containing images or consolidated prior Pap history is available as applicable. CT/NG, TMA, [id number] 10:55:53* Test Item Value Reference Range Interpretation Comme nts GONORRHEA, TMA (test code = 91952) NEGATIVE NEGATIVE Assay methodolog y is nucleic acid amplification by odd job worker mediated amplification (TMA) utilizing the Aptima Combo 2 Assay. CHLAMYDIA, TMA (test code = 27515) NEGATIVE NEGATIVE Assay methodolog y is nucleic acid amplification by odd job worker mediated amplification (TMA) utilizing the Aptima Combo 2 Assay. GC AND CHLAMYDIA AMPLIFIED, [id number] 00:00:00* Test Item Value Reference Range Interpretation Comme nts GONORRHEA, TMA (test code = 60273) NEGATIVE CHLAMYDIA, TMA (test code = 89566) NEGATIVE PAP TEST, THINPREP, [id number] 00:00:00* Test Item Value Reference Range Interpretation Comme nts SOURCE: (test code = 8001) Endocervical SLIDES: (test code = 8011) 1 LMP: (test code = 8021) 09/25/2021 SPECIMEN ADEQUACY: (test code = 78378) (NOTE) INTERPRETATION: (test code = 25465) NILM/NO EPITH. ABNORMALITY;SEE BELOW TRANSITIONAL NURSE: (test code = 8101) JUAQUIN Amado(ASCP) LOCATION: (test code = 66745) (NOTE) CPT: (test code = 8140) (NOTE) PAP TEST, THINPREP, [id number] 00:00:00* Test Item Value Reference Range Interpretation Comme nts SOURCE: (test code = 8001) Endocervical SLIDES: (test code = 8011) 1 LMP: (test code = 8021) 09/25/2021 SPECIMEN ADEQUACY: (test code = 16126) (NOTE) INTERPRETATION: (test code = 56961) NILM/NO EPITH. ABNORMALITY;SEE BELOW TRANSITIONAL NURSE: (test code = 8101) JUAQUIN Amado(ASCP) LOCATION: (test code = 14372) (NOTE) CPT: (test code = 8140) (NOTE) GC AND CHLAMYDIA AMPLIFIED, [id number] 00:00:00* Test Item Value Reference Range Interpretation Comme nts GONORRHEA, TMA (test code = 76439) NEGATIVE CHLAMYDIA, TMA (test code = 77018) NEGATIVE HPV HIGH RISK WITH GENOTYPE, [id number] 14:51:24* Test Item Value Reference Range Interpretation Comme nts HPV HIGH RISK INTERP (test code = 70340) NEGATIVE NEGATIVE HPV 16 (test code = 83749) NEGATIVE HPV 18 (test code = 44370) NEGATIVE HPV, HR, OTHER GENOTYPES (test code = 86905) NEGATIVE Testing methodol ogy is real-time PCR utilizing hydrolysis probes with the Zane Juan 4800 system. The test individually detects genotypes 16 and 18, as well as the other 12 high risk types (31,33,35,39,45,51,52,56 ,58,59,66,68). The expected result is negative. A negative result does not rule out the presence of HPV not included in the genotype set, a low level of infection or specimen sampling error. UNLESS OTHERWISE INDICATED, ALL TESTING PERFORMED [facility] [address] [place] [address] DTP OPERATOR: FANG DAMICO M.D. CLIA NUMBER [id number] [place]. [id number] CBC W/AUTO [id number] 00:00:00* Test Item Value Reference Range Interpretation Comme nts WBC (test code = 1001) 6.3 K/UL RBC (test code = 1002) 3.95 M/UL HEMOGLOBIN (test code = 1003) 12.2 G/DL HEMATOCRIT (test code = 1004) 35.6 % MCV (test code = 1005) 90.1 fL MCH (test code = 1006) 30.9 PG MCHC (test code = 1007) 34.3 G/DL RDW (test code = 1038) 12.0 % NEUTROPHILS (test code = 1008) 56.7 % LYMPHOCYTES (test code = 1010) 32.9 % MONOCYTES (test code = 1011) 7.8 % EOSINOPHILS (test code = 1012) 1.4 % BASOPHILS (test code = 1013) 1.0 % IMMATURE GRANULOCYTES (test code = 1036) 0.2 % NUCLEATED RBCS (test code = 1065) 0.0 /100WBC'S PLATELET COUNT (test code = 1015) 302 K/UL ABSOLUTE NEUTROPHILS (test c ode = 1066) 3.56 K/UL ABSOLUTE LYMPHOCYTES (test c ode = 1067) 2.06 K/UL ABSOLUTE MONOCYTES (test cod e = 1068) 0.49 K/UL ABSOLUTE EOSINOPHILS (test c ode = 1040) 0.09 K/UL ABSOLUTE BASOPHILS (test cod e = 1069) 0.06 K/UL ABS IMMATURE GRANULOCYTES (t est code = 1020) 0.01 K/UL ABS NUCLEATED RBCS (test cod e = 02566) 0.00 K/UL CBC W/AUTO [id number] 00:00:00* Test Item Value Reference Range Interpretation Comme nts WBC (test code = 1001) 6.3 K/UL RBC (test code = 1002) 3.95 M/UL HEMOGLOBIN (test code = 1003) 12.2 G/DL HEMATOCRIT (test code = 1004) 35.6 % MCV (test code = 1005) 90.1 fL MCH (test code = 1006) 30.9 PG MCHC (test code = 1007) 34.3 G/DL RDW (test code = 1038) 12.0 % NEUTROPHILS (test code = 1008) 56.7 % LYMPHOCYTES (test code = 1010) 32.9 % MONOCYTES (test code = 1011) 7.8 % EOSINOPHILS (test code = 1012) 1.4 % BASOPHILS (test code = 1013) 1.0 % IMMATURE GRANULOCYTES (test code = 1036) 0.2 % NUCLEATED RBCS (test code = 1065) 0.0 /100WBC'S PLATELET COUNT (test code = 1015) 302 K/UL ABSOLUTE NEUTROPHILS (test c ode = 1066) 3.56 K/UL ABSOLUTE LYMPHOCYTES (test c ode = 1067) 2.06 K/UL ABSOLUTE MONOCYTES (test cod e = 1068) 0.49 K/UL ABSOLUTE EOSINOPHILS (test c ode = 1040) 0.09 K/UL ABSOLUTE BASOPHILS (test cod e = 1069) 0.06 K/UL ABS IMMATURE GRANULOCYTES (t est code = 1020) 0.01 K/UL ABS NUCLEATED RBCS (test cod e = 26845) 0.00 K/UL CBC W/AUTO [id number] 00:00:00* Test Item Value Reference Range Interpretation Comme nts WBC (test code = 1001) 6.3 K/UL RBC (test code = 1002) 3.95 M/UL HEMOGLOBIN (test code = 1003) 12.2 G/DL HEMATOCRIT (test code = 1004) 35.6 % MCV (test code = 1005) 90.1 fL MCH (test code = 1006) 30.9 PG MCHC (test code = 1007) 34.3 G/DL RDW (test code = 1038) 12.0 % NEUTROPHILS (test code = 1008) 56.7 % LYMPHOCYTES (test code = 1010) 32.9 % MONOCYTES (test code = 1011) 7.8 % EOSINOPHILS (test code = 1012) 1.4 % BASOPHILS (test code = 1013) 1.0 % IMMATURE GRANULOCYTES (test code = 1036) 0.2 % NUCLEATED RBCS (test code = 1065) 0.0 /100WBC'S PLATELET COUNT (test code = 1015) 302 K/UL ABSOLUTE NEUTROPHILS (test c ode = 1066) 3.56 K/UL ABSOLUTE LYMPHOCYTES (test c ode = 1067) 2.06 K/UL ABSOLUTE MONOCYTES (test cod e = 1068) 0.49 K/UL ABSOLUTE EOSINOPHILS (test c ode = 1040) 0.09 K/UL ABSOLUTE BASOPHILS (test cod e = 1069) 0.06 K/UL ABS IMMATURE GRANULOCYTES (t est code = 1020) 0.01 K/UL ABS NUCLEATED RBCS (test cod e = 75424) 0.00 K/UL HPV HIGH RISK WITH GENOTYPE, [id number] 00:00:00* Test Item Value Reference Range Interpretation Comme nts HPV HIGH RISK INTERP (test c ode = 49897) NEGATIVE HPV 16 (test code = 37644) NEGATIVE HPV 18 (test code = 86899) NEGATIVE HPV, HR, OTHER GENOTYPES (te st code = 07322) NEGATIVE HPV HIGH RISK WITH GENOTYPE, [id number] 00:00:00* Test Item Value Reference Range Interpretation Comme nts HPV HIGH RISK INTERP (test c ode = 93834) NEGATIVE HPV 16 (test code = 36908) NEGATIVE HPV 18 (test code = 76855) NEGATIVE HPV, HR, OTHER GENOTYPES (te st code = 97554) NEGATIVE Notes Date/Time Note Provider Source 2023-09-16 08:30:19 Chief Complaint Patient presents with Physical Patient is fasting. No other issues to discuss Hattie Palencia MA II T [facility] 2022-12-30 14:29:35 Formatting of this n ote is different from the original. Chief Complaint Patient presents with Breast Pain Left breast pain and pulling since having gastric bypass in 2020. Abdominal Cramping Right side abdominal cramps for 6 months. No nausea, vomiting or diarrhea. OTHER She has been having panic attacks a lot lately. Hattie Palencia MA II T Hattie Palencia MA, II [facility]
[2023-11-25] MEDS ORDERED: LIDOCAINE 1% 20 ML MDV ONE (23:43)
[2023-11-25] MEDS ORDERED: IBUPROFEN 400 MG TAB ONE (23:43)
[2023-11-25] MEDS ORDERED: ONDANSETRON 4 MG (ODT) TAB ONE (23:43)
[2023-11-25] MEDS ORDERED: HYDROCODONE/APAP 10/325 TAB ONE (23:44)
[2023-11-25] MEDS ORDERED: TDAP (DIPHTH,PERTUSS(ACELL),TET VAC) 0.5 ML VIAL IMVAC ONE (23:44)
[2023-11-25] MEDS ORDERED: LORAZEPAM 1 MG TABLET ONE (23:44)
[2023-11-26] MEDS ORDERED: LIDOCAINE 1% 20 ML MDV ONE (04:20)
[2023-11-26] MEDS ORDERED: IBUPROFEN 400 MG TAB ONE (04:44)
[2023-11-26] MEDS ORDERED: PROMETHAZINE 25 MG TABLET ONE (04:45)
[2023-11-26] MEDS ORDERED: HYDROCODONE/APAP 10/325 TAB ONE (04:45)
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
[2023-11-26 09:34] VITALS: O2SAT 100
[2023-11-26 09:38] VITALS: BP 108/62; TEMP 98
--- NOTE | 2023-11-26 19:51 | RAD REPORT ---
EXAM DESCRIPTION: XR HAND 3 OR MORE VIEWS RIGHT CLINICAL HISTORY: 43 years Female hand injury TECHNIQUE: Three x-ray views of the right hand were performed on 11/25/2023 at 11:32 PM. COMPARISON: None FINDINGS: There is a mildly displaced transverse fracture through the mid to distal portion of the d istal phalanx of the fifth digit of the right hand. No additional acute fractures are identified. The re is no evidence of dislocation. No arthritic or degenerative changes are noted. No lytic or sclerot ic bone lesions are seen. Bone mineralization is normal. There is mild soft tissue swelling surrounding the distal portion of the fifth digit of the right adkins d. There is no evidence of subcutaneous emphysema. No radiopaque foreign body is identified. IMPRESSION: Mildly displaced transverse fracture through the mid to distal portion of the distal pha lanx of the fifth digit of the right hand with surrounding soft tissue swelling. Electronically signed by: Hattie Cleary DO 11/26/2023 12:12 AM CDT RP Due to temporary technical issues with the PACS/Fluency reporting system, reports are being signed by the in house radiologists without review as a courtesy to insure prompt reporting. The interpreting radiologist is fully responsible for the content of the report.
--- NOTE | 2023-11-26 20:02 | RAD REPORT ---
EXAM DESCRIPTION: 1. CT HEAD without IV contrast. 2. CT CERVICAL SPINE without IV contrast. 3. CT CHEST without IV contrast 4. CT ABDOMEN AND PELVIS without IV contrast CLINICAL HISTORY: 43 years Female DIZZINESS TECHNIQUE: Multiple axial CT images of the brain, cervical spine, chest, abdomen and pelvis were per formed followed by sagittal and coronal reconstructed images. The CT study is performed according to ALARA (as low as reasonably achievable) or ALARA/IMAGE GENTLY, with automatic adjustment of mA and/or kV according to patient size. Performed on: 11/25/2023 at 11:28 PM COMPARISON: No prior studies were available for comparison.. FINDINGS: CT HEAD: There is no evidence of mass, acute mass effect or midline shift. There are no acute extra-axial flui d collections. There is no evidence of acute intracranial hemorrhage. The cerebral sulci and ventricles are normal in size and configuration. There are no focal abnormal areas of increased or decreased attenuation. There is no significant mucosal thickening of the paranasal sinuses. The mastoid air cells are clear. The orbital contents are grossly unremarkable. No acute osseous abnormalities are identified. There is an impacted posterior left maxillary molar. T here is straightening and slight reversal of the normal cervical lordosis which may be due to muscle spasm or patient positioning. There is mild degenerative disc disease at C5-C6. No focal soft tissue abnormalities are identified. CT CERVICAL SPINE: The cervical vertebrae are normal in height. There is straightening and slight reversal of the normal cervical lordosis which may be due to patient positioning or muscle spasm. There is mild disc space narrowing at C5-C6 and mild degenerative disc disease at this level. There is a prominent Schmorl's n ode along the superior endplate of C6 and minimal hypertrophic spurring of the vertebral endplates at this level. Bone mineralization is normal. The atlanto-axial articulation is preserved and the od ontoid process is intact. There is normal alignment of the facet joints on the parasagittal images. There are no significant de generative changes of the cervical spine. There is no evidence of acute fracture or subluxation. There is no significant canal stenosis. Ther e is no significant neural foraminal stenosis. The paravertebral and paraspinal soft tissues are un remarkable. The lung apices are clear. Incidentally noted is an impacted posterior left maxillary molar. CHEST: Lungs: The lungs are well expanded. There are scattered tree-in-bud opacities within the inferior por tion of the right upper lobe as well as the posterior left upper lobe concerning for acute or chronic bronchiolitis. The remainder of the lungs are grossly clear. There are no pleural effusions. There i s no pneumothorax. The central airways are patent. Heart: The heart is normal in size. There is no pericardial effusion. Mediastinum: The mediastinum is unremarkable. The mediastinal vessels are normal in caliber and con tour. Bones: No acute osseous abnormalities are identified. There are old healed fractures of the posterior left third through fifth ribs. There is mild degenerative spurring along the vertebral endplates thr oughout the thoracic spine. Soft tissues: No acute soft tissue abnormalities are identified. Incidentally noted, there appears to be retraction of the right nipple which may be chronic in nature. No retroareolar masses identified. The thyroid gland is grossly normal in size and induration. Lymphadenopathy: No pathologic hilar, mediastinal or axillary lymphadenopathy is identified. ABDOMEN/PELVIS: Limitations: There is some streak artifact on the images related to the patient's arms being down by her side and placed across her abdomen during scanning. Liver: The liver measures approximately 19 cm in craniocaudal dimension. No focal hepatic abnormaliti es are identified. Liver attenuation is within normal limits. Spleen: The spleen is normal is size, configuration and attenuation. Gallbladder and bile duct: The gallbladder is well distended. There is faint increased density with in the dependent portion of the gallbladder lumen which may represent small stones or sludge. There i s no biliary ductal dilatation. Pancreas: The pancreas is grossly normal in size and configuration. Adrenal Glands: The adrenal glands are normal in size and configuration. Kidneys: The kidneys are normal in size and configuration. There is no evidence of hydronephrosis. Th ere is no evidence of nephrolithiasis. No definite solid or cystic renal mass lesions are identified. 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 T here is no definite hiatal hernia. Bowel: The bowel gas pattern is non specific and non obstructive. Appendix: The appendix is normal. Free air: There is no evidence of free air. Free fluid: There is no evidence of free fluid. Vasculature: The aorta is normal in caliber and contour. The inferior vena cava is grossly unremarkab le. Lymphadenopathy: No pathologic lymphadenopathy is identified. Bladder: The bladder is well distended and smooth in contour. Reproductive: The uterus is grossly within normal limits. Bones: The lumbar vertebrae are normal in height and alignment. The bony pelvis is intact. As noted p reviously, there is a mildly displaced fracture through the midportion of the distal phalanx of the f ifth digit of the right hand (series 405, image 108). Soft tissues: No acute soft tissue abnormalities are identified. IMPRESSION: CT HEAD: No evidence of acute intracranial pathology. CT CERVICAL SPINE: 1. No evidence of acute osseous injury involving the cervical spine. 2. Mild degenerative disc disease at C5-C6. 3. There is straightening and slight reversal of the normal cervical lordosis which may be due to p atient positioning or muscle spasm. CT CHEST: 1. Scattered tree-in-bud opacities within the inferior portion of the right upper lobe as well as t he posterior left upper lobe concerning for acute or chronic bronchiolitis. 2. There are old healed fractures of the posterior left third through fifth ribs. 3. There appears to be retraction of the right nipple which may be chronic in nature. CT ABDOMEN AND PELVIS: 1. No evidence of acute intra-abdominal or intrapelvic pathology. 2. Remote postsurgical changes of the stomach consistent with prior gastric bypass. 3. Faint increased density within the dependent portion of the gallbladder lumen which may represen t small stones or sludge. 4. Mildly displaced fracture through the midportion of the distal phalanx of the fifth digit of the right hand. Electronically signed by: Hattie Cleary DO 11/26/2023 12:40 AM CDT Due to temporary technical issues with the PACS/Fluency reporting system, reports are being signed by the in house radiologists without review as a courtesy to insure prompt reporting. The interpreting radiologist is fully responsible for the content of the report.
== END 2023-11-26 05:24 | disposition home or self-care (01) ==
LOC: ER 22:05
PROC: 0HQ0XZZ Repair Scalp Skin, External Approach (ICD-10-PCS; principal; 2023-11-26)
PROC: 2W3JX1Z Immobilization of Right Finger using Splint (ICD-10-PCS; 2023-11-26)
DX: S06.0X9A Concussion with loss of consciousness of unspecified duration, initial encounter (principal); S01.01XA Laceration without foreign body of scalp, initial encounter; S62.636A Displaced fracture of distal phalanx of right little finger, initial encounter for closed fracture; Y04.2XXA Assault by strike against or bumped into by another person, initial encounter
CPT/HCPCS: 12001; 70450; 71250; 72125; 73130; 96372; 99284; 29130; Q0169; Q0162; J2001 ×2